=== PATIENT | male | born 1955 | race Caucasian/White ===

== ENCOUNTER → 2024-05-25 13:00 | Outpatient (REF) | payer OTHER, SELFPAY | LOC: HWRCS 13:00 | PROVIDERS: ATTENDING PHYSICIAN Student in an Organized Health Care Education/Training Program | DX: I45.10 Unspecified right bundle-branch block (principal) | CPT/HCPCS: 93306 ==

== ENCOUNTER 2024-10-13 13:20 | Emergency (ER) | payer OTHER, SELFPAY ==
[2024-10-13 13:31] VITALS: BP 103/64
--- NOTE | 2024-10-13 14:37 | ED.GENMED ---
History of Present Illness
General
Chief Complaint: Skin Problem
Time Seen by Provider: 10/13/24 14:22
History of Present Illness
History of Present Illness:
69-year-old male presents the emergency department for evaluation of a firm lump to the right AC vein that was used 2 weeks ago for a venipuncture. He notes that the arm was significantly ecchymotic after the venipuncture was performed. Denies any
pain to the site. No arm edema, chest pain, or shortness of breath
Review of Systems
Review of Systems
Allergies reviewed?: Yes
All Other Systems: ROS reviewed and negative except as documented in HPI and ROS
Phy Exam
Physical Exam
Physical Exam:
GEN: Well appearing, NAD, WDWN
HEENT: Oral mucosa moist, no scleral icterus
Cardiac: Regular rate
Lung: No respiratory distress, no tachypnea
MSK: No gross deformity or injuries. Nodular density palpated along the inner AC vein with no erythema or warmth, nontender, does not track into the upper arm, no arm edema
Skin: Good color, no pallor or jaundice, no rashes
Neuro: AO x3, moves all extremities freely
Psych: Calm, cooperative
Course
Vital Signs
Initial and Last Documented VS:
Initial Vital Signs
Temp Pulse Resp BP Pulse Ox
98.6 F 72 16 103/64 100
10/13/24 13:31 10/13/24 13:31 10/13/24 13:31 10/13/24 13:31 10/13/24 13:31
Last Documented Vital Signs
Temp Pulse Resp BP Pulse Ox
98.6 F 72 16 103/64 100
10/13/24 13:31 10/13/24 13:31 10/13/24 13:31 10/13/24 13:31 10/13/24 14:38
MDM/Problems Addressed
MDM/Problems Addressed:
Most likely a superficial phlebitis, there is no arm edema concerning for DVT thus no imaging is warranted. Recommend aspirin and warm compresses
*Pulse Oximetry
SaO2: 100
Oxygen Mode of Delivery: Room air
Patient hypoxic: no
*Critical Care Note
Total Time (30-74mins, 75-104mins- exclusive of procedures): Not Applicable
ED Attending Note
-
Portions of this chart may have been created with voice recognition software.� Occasional wrong word or��sound alike� substitutions may have occurred due to the inherent limitations of voice recognition software.
Discharge Plan
Departure
Patient Disposition: Home (Routine Discharge)
Date of Disposition: 10/13/24
Time of Disposition: 14:37
Patient with high blood pressure during this ER visit?: No
Discharge Problem:
Phlebitis of superficial vein
Instructions: Superficial vein phlebitis and thrombosis
Activity Restrictions/Additional Instructions:
325mg aspirin once daily for 10-14 days
Warm compresses 2-3 times daily
Follow up with your primary doctor if symptoms worsen
Interventions
Interventions:
*Risk Screen - Suicide Last Done: 10/13/24 13:31
*Neglect/Abuse Screening Last Done: 10/13/24 13:31
*Nursing Disposition Last Done: 10/13/24 15:14
Discharge Date and Time
Discharge Date/Time: 10/13/24 15:15
Print Language: CITIZ[place]
== END 2024-10-13 15:15 | disposition home or self-care (01) ==
LOC: EMR 13:20
PROVIDERS: EMERGENCY PHYSICIAN Emergency Medicine
DX: I80.8 Phlebitis and thrombophlebitis of other sites (principal)
CPT/HCPCS: 99282

== ENCOUNTER → 2025-01-10 08:51 | Outpatient (REF) | payer OTHER, SELFPAY | LOC: HWRAD 08:51 | PROVIDERS: ATTENDING PHYSICIAN Student in an Organized Health Care Education/Training Program; FAMILY PHYSICIAN Family Medicine | DX: Z78.0 Asymptomatic menopausal state (principal) | CPT/HCPCS: 77080 ==